=== PATIENT | female | born 1945 | race African-American/Black ===

== ENCOUNTER → 2024-04-12 | Outpatient (CLI) | payer BC | END | disposition home or self-care (01) | LOC: RAD 11:45 | PROVIDERS: ATTEND Internal Medicine Critical Care Medicine | DX: R04.2 Hemoptysis (principal) | CPT/HCPCS: 71046 ==

== ENCOUNTER 2025-03-16 15:47 | Emergency (ER) | payer BC, MEDICARE ==
[~2025-03-16] VITALS: Ht 167.6 cm; Wt 77.0 kg
[~2025-03-16 15:47] MED LIST: ALBU18HF2 IH; ASCO125T PO; ASPI-1406 PO; CARD12 PO; FERR236T3 PO; ICOS1CAP PO; METH-372 PO; MOME110A IH; MONT-39 PO; OLME40TA11 PO; POTA-205 PO; ROFL500T PO; ROSU40TA PO; TIRZ15PE
[2025-03-16 15:49] VITALS: O2SAT 97
[2025-03-16 16:49] LABS: CHLORIDE 103 mEq/L (98-107); HEMATOCRIT. 39.3 % (36.0-48.0); HEMOGLOBIN. 13.2 g/dL (12.0-16.0); MEAN CORPUSCULAR HEMOGLOBIN 29.3 pg (28.0-32.0); MEAN CORPUSCULAR HGB CONC 33.6 g/dL (31.0-37.0); MEAN CORPUSCULAR VOLUME 87.2 fL (81.0-99.0); MEAN PLATELET VOLUME 7.2 fl (7.4-10.4); PLATELET 286 x1000/uL (130-400); RED CELL DISTRIBUTION WIDTH 13.5 % (11.6-14.6); SODIUM 135 mEq/L (136-145); WHITE BLOOD COUNT 9.1 x1000/uL (4.5-11.0)
[2025-03-16 16:50] LABS: CALCIUM 9.3 mg/dL (8.7-10.4); CARBON DIOXIDE 24 mEq/L (21-32)
[2025-03-16 16:55] LABS: CREATININE 0.8 mg/dL (0.6-1.0); DIFFERENTIAL COMMENT 1; GLUCOSE 149 mg/dL (70-105); UREA NITROGEN BLOOD 25 mg/dL (9-23)
[2025-03-16 16:57] LABS: TROPONIN I HIGH SENSITIVITY 5 ng/L (3.0-34)
[2025-03-16 16:58] LABS: PARTIAL THROMBOPLASTIN TIME 27.3 sec (23.4-31.0); PROTHROMBIN TIME 10.6 sec (9.6-11.0)
[2025-03-16 18:09] LABS: PLATELET ESTIMATE NORMAL
[2025-03-16 19:28] LABS: TROPONIN I HIGH SENSITIVITY 7 ng/L (3.0-34)
[2025-03-16 19:52] VITALS: BP 139/63; PULSE 90; RESP 18; TEMP 37; O2SAT 98
== END 2025-03-16 19:54 | disposition home or self-care (01) ==
LOC: ER 15:47 → EDBEDREQ 16:20 → ER 19:54
DX: R07.89 Other chest pain (principal); E11.9 Type 2 diabetes mellitus without complications; E78.00 Pure hypercholesterolemia, unspecified; I10 Essential (primary) hypertension; J45.909 Unspecified asthma, uncomplicated; Z79.899 Other long term (current) drug therapy
CPT/HCPCS: 36415; 71045; 80048; 83880; 84484; 85025; 93005; 99285; A4606